=== PATIENT | male | born 1950 | race Caucasian/White ===

== ENCOUNTER → 2018-03-11 | Outpatient (CLI) | payer OTHER, MEDICARE | LOC: M.LAB 02:07 | DX: Z01.812 Encounter for preprocedural laboratory examination (principal) ==

== ENCOUNTER → 2021-01-10 | Outpatient (CLI) | payer OTHER | LOC: M.RAD 15:31 | PROVIDERS: ATTEND Internal Medicine Critical Care Medicine | DX: J43.9 Emphysema, unspecified (principal); I48.91 Unspecified atrial fibrillation; I51.7 Cardiomegaly; J98.4 Other disorders of lung ==

== ENCOUNTER → 2021-03-16 | Outpatient (CLI) | payer OTHER ==
--- NOTE | 2021-03-21 14:44 | SLEEP ---
[address] [address] SLEEP STUDY REPORT Name: JOHNNY UREÑA Room: [facility]#: [id number] Admission: 03/16/21 Attend Phys: David Silva MD Discharge: Date of : 50 Report #: [id number] THIS REPORT FOR: cc: Kayc Diaz MD, Lin W. MD Pervez, Adeel MD ~ This study has been reviewed in its entirety by a board certified sleep specialist DATE OF SERVICE: 03/16/2021 INDICATION FOR SLEEP STUDY: Obstructive sleep apnea with excessive daytime sleepiness persisting despite use of BiPAP. INTERPRETATION: Total duration of the study is 427 minutes out of which he was asleep for 414 minutes with an overall sleep efficiency of 84%. Sleep onset occurred around 13 minutes after lying down in bed and REM onset was delayed to 154 minutes after sleep onset. N1 sleep duration is 12%, N2 duration is 54%, N3 duration was 12%, and REM duration is 22%. This is a split night sleep study. During the initial part of the sleep study, the patient was not on positive airway pressure therapy for 177 minutes, this included 129 minutes of sleep time, which included 3 minutes of REM sleep. The patient, at this time, had multiple sleep related respiratory events, most of these were hypopneas. A total of 67 hypopneas were recorded in addition to 21 respiratory effort related arousals. Interestingly, no apneas were recorded, but the patient's overall apnea-hypopnea index is markedly elevated to 31.3. Body position data indicates the patient was observed lying supine asleep for 34 minutes. Supine apnea-hypopnea index was even higher at 57. Events do appear to be more common in REM sleep as well as REM apnea-hypopnea index is 80, mean heart rate is 78. Periodic limb movement index is elevated to 111. Most limb movements, however, are not associated with arousals. Periodic limb movement index with arousals is 15.4. There were also multiple desaturations recorded. Overall, the patient spent 101 minutes below an O2 saturation of 90%, out of which 61.2 minutes were spent below an O2 saturation of 88%. Mean heart rate is 78 during the diagnostic portion of the sleep study. The patient was subsequently placed on a CPAP and was observed on CPAP therapy for 249 minutes. Review of the CPAP titration indicates the patient was titrated beginning with a CPAP pressure of 6 cm of water, gradually increasing it to 11 cm of water. In summary, the patient continued to have hypopneas on all CPAP pressures and also continued to [place] [id number] SLEEP STUDY REPORT Name: JOHNNY UREÑA Room: [facility]#: [id number] Admission: 03/16/21 Attend Phys: David Silva MD Discharge: Date of : 50 Report #: [id number] central apneas were also recorded. Adequate control of the patient's obstructive sleep apnea was not achieved with the use of CPAP. IMPRESSION: 1. Obstructive sleep apnea with an apnea-hypopnea index of 31.3 with nocturnal hypoxemia marked as described above. 2. Events are more common when the patient is lying supine and also more common in REM sleep. 3. Periodic limb movement disorder is noted as described above. RECOMMENDATIONS: As the patient failed CPAP therapy during the sleep study, I recommend proceeding to a repeat sleep study for BiPAP titration. He has an old CPAP. I will plan to switch this over to a BiPAP after the next sleep study. Recommend weight loss. I will ask him on the next office visit regarding restless legs syndrome; however, at this time I am inclined to hold off on therapy for his periodic limb movement disorder and address his sleep apnea first. Recommend avoiding driving or other activities requiring vigilance if drowsy. His entire sleep study was reviewed by board certified sleep physician. <ELECTRONICALLY SIGNED> By: David Silva MD 03/21/21 [id number] Silva MD /nt
== END ==
LOC: M.SLEEPLAB 02-10 21:00
PROVIDERS: ATTEND Internal Medicine Critical Care Medicine
DX: G47.33 Obstructive sleep apnea (adult) (pediatric) (principal); G47.19 Other hypersomnia; Z72.821 Inadequate sleep hygiene; Z68.43 Body mass index [BMI] 50.0-59.9, adult; E66.01 Morbid (severe) obesity due to excess calories; I48.91 Unspecified atrial fibrillation

== ENCOUNTER → 2021-04-25 | Outpatient (CLI) | payer OTHER | LOC: M.SLEEPLAB 04-20 21:00 | PROVIDERS: ATTEND Internal Medicine Critical Care Medicine | DX: G47.33 Obstructive sleep apnea (adult) (pediatric) (principal) ==

== ENCOUNTER → 2021-05-08 | Outpatient (CLI) | payer OTHER | LOC: M.RAD 15:16 | PROVIDERS: ATTEND Internal Medicine Critical Care Medicine | DX: R06.02 Shortness of breath (principal); J84.9 Interstitial pulmonary disease, unspecified ==

== ENCOUNTER → 2021-05-11 | Outpatient (CLI) | payer OTHER ==
--- NOTE | 2021-05-16 08:35 | PF ---
[address] [address] PULMONARY FUNCTION REPORT Name: JOHNNY UREÑA Room: [facility]#: [id number] Admission: 05/11/21 Attend Phys: David Silva MD Discharge: Date of : 50 Report #: [id number] THIS REPORT FOR: cc: Kacy Diaz MD, Lin W. MD Pervez, Adeel MD ~ DOC #: [id number] David Silva MD DATE OF VISIT: 05/11/2021 PULMONARY FUNCTION TEST SPIROMETRY: The FEV1/FVC ratio is normal at 76% with an FVC decreased at 72%. The FEV1 has also decreased to 75% and FEF 25-75 is normal at 79%. After the administration of bronchodilator, there is no significant increase in any of these values. The patient's post-bronchodilator FEV1 is 77%. FLOW VOLUME LOOP: Concave upwards. LUNG VOLUMES: The total lung capacity is normal at 91%. The residual volume is normal, but close to the upper limit of normal range at 117%. DIFFUSION CAPACITY: The DLCO as adjusted for hemoglobin has decreased to 75%. IMPRESSION: 1. There is a restrictive pattern on spirometry. I suspect that the underlying etiology is moderate obstruction without evidence of reversibility as the patient's flow volume loop is concave upwards and residual volume is close with the upper limit of normal range. Poor effort and neuromuscular weakness can also lead to this picture but appear to be less likely. 2. Lung volumes are normal; however, residual volume is close to the upper limit of normal range at 117%, likely due to underlying obstruction. 3. The DLCO as adjusted for hemoglobin has decreased to 75%. David Silva MD AP/AGNIESZKA <ELECTRONICALLY SIGNED> By: David Silva MD 05/16/21 [id number] Silva MD /nt
== END ==
LOC: M.PUL 11:43
PROVIDERS: ATTEND Internal Medicine Critical Care Medicine
DX: R06.02 Shortness of breath (principal); J45.30 Mild persistent asthma, uncomplicated

== ENCOUNTER → 2021-07-26 | Outpatient (CLI) | payer OTHER | LOC: M.CT 06-22 13:00 | PROVIDERS: ATTEND Internal Medicine Critical Care Medicine | DX: J47.9 Bronchiectasis, uncomplicated (principal) ==

== ENCOUNTER → 2022-01-02 | Outpatient (CLI) | payer OTHER | LOC: M.CT 11:00 | PROVIDERS: ATTEND Internal Medicine Critical Care Medicine | DX: J84.89 Other specified interstitial pulmonary diseases (principal); J84.9 Interstitial pulmonary disease, unspecified; I25.10 Atherosclerotic heart disease of native coronary artery without angina pectoris; M47.815 Spondylosis without myelopathy or radiculopathy, thoracolumbar region; I70.0 Atherosclerosis of aorta; R91.8 Other nonspecific abnormal finding of lung field ==